=== PATIENT | female | born 1960 | race Caucasian/White ===

== ENCOUNTER → 2020-02-23 13:39 | Outpatient (BNVA) | payer OTHER, SELFPAY | PROVIDERS: Family Provider Family Medicine; PCP Family Medicine; Visit Provider Family Medicine | DX: Z11.59 Encounter for screening for other viral diseases (principal) | CPT/HCPCS: 87635 ==

== ENCOUNTER 2020-05-24 14:14 | Outpatient (CLI) | payer OTHER, SELFPAY ==
--- NOTE | 2020-05-24 14:23 | XRR_ITS ---
PROCEDURE INFORMATION: Exam: XR Chest, 2 Views Exam date and time: 05/24/2020 2:24 PM Age: 59 years old Clinical indication: Patient HX: Coughing since 05/09/20, upper back pain; Additional info: Upper back pain/cough TECHNIQUE: Imaging protocol: XR of the chest Views: 2 views. COMPARISON: No relevant prior studies available. FINDINGS: Lungs: Emphysematous change. Pleural space: Questionable small right pleural effusion. Heart/Mediastinum: No cardiomegaly. Bones/joints: Osteopenia and degenerative change. XR/XR chest 2V* [id number] IMPRESSION: Emphysematous change and questionable small right pleural effusion.
== END 2020-05-24 14:15 | disposition home or self-care (01) ==
LOC: RAD 14:18
PROVIDERS: PCP Family Medicine; Visit Provider Nurse Practitioner Family
DX: M54.9 Dorsalgia, unspecified (principal); R05 Cough
CPT/HCPCS: 71046

== ENCOUNTER 2020-06-01 10:37 | Outpatient (CLI) | payer OTHER, SELFPAY ==
--- NOTE | 2020-06-01 10:48 | XRR_ITS ---
PROCEDURE INFORMATION: Exam: XR Chest, 2 Views Exam date and time: 06/01/2020 10:49 AM Age: 59 years old Clinical indication: Cough and shortness of breath; Patient HX: SOB, back pain, cough; Additional info: Tobacco dependence/upper back pain/cough TECHNIQUE: Imaging protocol: XR of the chest Views: 2 views. COMPARISON: CR XR chest 2V* [id number] 05/24/2020 2:29 PM FINDINGS: Lungs: Unremarkable. No consolidation. Pleural space: The posterior costophrenic sulci are blunted which is consistent with small bilateral pleural effusions. This is unchanged. Heart/Mediastinum: Unremarkable. No cardiomegaly. Bones/joints: Unremarkable. XR/XR chest 2V* [id number] IMPRESSION: No significant change in small effusions in the posterior costophrenic sulci. The lungs remain clear.
== END 2020-06-01 10:38 | disposition home or self-care (01) ==
PROVIDERS: PCP Family Medicine; Visit Provider Family Medicine
DX: F17.200 Nicotine dependence, unspecified, uncomplicated (principal); M54.9 Dorsalgia, unspecified; R05 Cough
CPT/HCPCS: 71046

== ENCOUNTER 2020-10-07 10:18 | Outpatient (CLI) | payer OTHER, SELFPAY ==
--- NOTE | 2020-10-07 10:24 | XRR_ITS ---
PROCEDURE INFORMATION: Exam: XR Chest Exam date and time: 10/07/2020 10:25 AM Age: 59 years old Clinical indication: Patient HX: Back pain and cough just when lying down since 06/10; Additional info: Respiratory crackles, upper back pain TECHNIQUE: Imaging protocol: XR of the chest. Views: 2 views. COMPARISON: CR XR chest 2V* [id number] 06/01/2020 10:51 AM FINDINGS: Lungs: The lungs are over-inflated with flattening of the diaphragm indicating pulmonary emphysema. No pulmonary infiltrates are seen. Pleural spaces: Unremarkable. No pleural effusion. No pneumothorax. Heart/Mediastinum: Unremarkable. No cardiomegaly. Bones/joints: Unremarkable. XR/XR chest 2V* [id number] IMPRESSION: Overinflated lungs consistent with emphysema. No acute abnormality.
== END 2020-10-07 10:19 | disposition home or self-care (01) ==
LOC: RAD 10:21
PROVIDERS: PCP Family Medicine; Visit Provider Family Medicine
DX: R09.89 Other specified symptoms and signs involving the circulatory and respiratory systems (principal); M54.9 Dorsalgia, unspecified; R05 Cough
CPT/HCPCS: 71046

== ENCOUNTER 2020-11-11 10:07 | Outpatient (CLI) | payer OTHER, SELFPAY ==
[2020-11-11 10:42] LABS: Basophils # 0.1 10^3/uL (0.0-0.1); Basophils % 0.5 %; Eosinophils # 0.1 10^3/uL (0.0-0.8); Eosinophils % 0.8 %; Hematocrit 41.6 % (37.0-47.0); Hemoglobin 13.8 g/dL (11.5-15.3); Lymphocytes # 1.4 10^3/uL (0.8-4.8); Mean Corpuscular HGB Conc 33.2 g/dL (30.0-36.0); Mean Corpuscular Hemoglobin 33.2 pg (28.0-34.0); Mean Platelet Volume 9.8 fL (7.4-10.4); Monocytes # 0.6 10^3/uL (0.2-0.9); Monocytes % 5.5 %; Neutrophils % 78.9 %; Nucleated Red Blood Cells % 0 %; Platelet Count 276 10^3/cmm (130-400); Red Blood Count 4.16 10^6/uL (4.1-5.3); White Blood Count 10.3 10^3/uL (4.0-10.0)
[2020-11-12 17:23] LABS: Alternaria Alternata (M6) Ige <0.10 kU/L; Alternaria Class 0; Bermuda Class 0; Bermuda Grass (G2) Ige <0.10 kU/L; Cat Dander (E1) Ige <0.10 kU/L; Cat Dander Class 0; Common Ragweed (Short) (W1) Ig <0.10 kU/L; D. Farinae Class 0; Dermatophagoides Class 0; Dermatophagoides Farinae (D2) <0.10 kU/L; Dermatophagoides Pteronyssinus <0.10 kU/L; Dog Dander (E5) Ige <0.10 kU/L; Dog Dander Class 0; Elm (T8) Ige <0.10 kU/L; Elm Class 0; English Plantain (W9) Ige <0.10 kU/L; English Plantain Class 0; House Dust (Greer) (H1) Ige <0.10 kU/L; House Dust (Hollister- Stier) <0.10 kU/L; House Dust Class 0; Immunoglobulin E 183 kU/L (<OR=114); Immunoglobulin E 187 kU/L (<OR=114); Johnson Grass (G10) Ige <0.10 kU/L; Johnson Grass Cl 0; June Grass Class 0; June Grass(Kentucky Blue) (G8) <0.10 kU/L; Lamb'S Quarters (Goose Foot) <0.10 kU/L; Lamb'S Quarters Class 0; Maple (Box Elder) (T1) Ige <0.10 kU/L; Maple Class 0; Meadow Fescue (G4) Ige <0.10 kU/L; Meadow Fescue Class 0; Mucor Racemosus Class 0; Oak (T7) Ige <0.10 kU/L; Oak Class 0; Orchard Grass (Cocksfoot) (G3) <0.10 kU/L; Penicillium Class 0; Penicillium Notatum (M1) Ige <0.10 kU/L; Perennial Rye Grass (G5) Ige <0.10 kU/L; Perennial Rye Grass Class 0; Ragweeed Class 0; Rough Marsh Elder (W16) Ige <0.10 kU/L; Rough Marsh Elder Class 0; Sweet Vernal Class 0; Sweet Vernal Grass (G1) Ige <0.10 kU/L; Timothy Grass (G6) Ige <0.10 kU/L; Timothy Grass Class 0
== END 2020-11-11 10:08 | disposition home or self-care (01) ==
PROVIDERS: PCP Family Medicine; Visit Provider Internal Medicine Pulmonary Disease
DX: J30.89 Other allergic rhinitis (principal)
CPT/HCPCS: 82785; 85025; 86003

== ENCOUNTER 2020-12-03 08:46 | Outpatient (CLI) | payer OTHER, SELFPAY ==
--- NOTE | 2020-12-03 08:49 | MM_ITS ---
WS: [id number] Bilateral screening digital mammogram, 12/03/2020 Clinical Data: SCREENING Comparison: 06/21/2018. Findings: The breast parenchymal pattern shows heterogeneous density No spiculated masses or clustered calcific ations are seen. There are no secondary signs of carcinoma. MM/[id number] Impression: 1. Negative bilateral mammogram unchanged. 2. Recommend annual screening mammograms. BIRADS: 1-Negative FOLLOW UP: 1 Year Follow-up The CAD lumber checker was used.
== END 2020-12-03 08:47 | disposition home or self-care (01) ==
LOC: RADSHAW 08:48
PROVIDERS: PCP Family Medicine; Visit Provider Family Medicine
DX: Z12.31 Encounter for screening mammogram for malignant neoplasm of breast (principal)
CPT/HCPCS: 77067

== ENCOUNTER → 2021-01-28 10:00 | Outpatient (BNVA) | payer OTHER, SELFPAY | PROVIDERS: PCP Family Medicine; Visit Provider Internal Medicine Pulmonary Disease | DX: Z01.812 Encounter for preprocedural laboratory examination (principal); Z20.822 Contact with and (suspected) exposure to COVID-19 | CPT/HCPCS: 87635 ==

== ENCOUNTER 2021-02-02 07:07 | Outpatient (CLI) | payer OTHER, SELFPAY ==
--- NOTE | 2021-02-02 07:12 | CT_ITS ---
WS: [id number] LDCT LUNG CANCER SCREENING HISTORY: lung cancer screening TECHNIQUE: Axial imaging performed from the apices to 1 cm below the costophrenic angles. Coronal and sagittal reformats are submitted with axial MIP series. All CT scans at [facility] use at least one of these dose optimization techniques: automated exposure control; mA and/or kV adjustment per patient size (includes targeted exams where dose is matched to clinical indication); or iterativ e reconstruction. DLP: 61.31 mGy.cm DIvol: 1.58 mGy COMPARISON: None available. Diagnostic quality: Satisfactory Lung Nodules: No pulmonary nodules or endobronchial lesions. Lungs: Linear atelectasis or scarring at the RIGHT lung base at the costophrenic angle. Heart: Normal heart size. No pericardial effusion. Other findings: Mild atherosclerosis aorta. CT/CT lung screening [id number] IMPRESSION: LUNG-RADS: 1-Negative FOLLOW UP: 12 Month: Continue annual screening with LDCT OTHER FINDINGS (S MODIFIER): None.
--- NOTE | 2021-02-02 10:55 | PFTS_ITS ---
Date of Study:02/02/21 Date of Dictation: 02/02/2021 MECHANICS: Forced vital capacity (FVC) is normal. Forced expiratory volume in one second (FEV1) is normal. FEV1/FVC is normal. No significant postbronchodilator response. FLOW VOLUME LOOP: normal. . LUNG VOLUMES: Total lung capacity (TLC) is normal. . Residual volume (RV) is normal. DIFFUSING CAPACITY FOR CARBON MONOXIDE: normal. . INTERPRETATION: The pulmonary function tests are normal. MTDD
== END 2021-02-02 07:08 | disposition home or self-care (01) ==
LOC: RAD 07:10
PROVIDERS: PCP Family Medicine; Visit Provider Internal Medicine Pulmonary Disease
DX: Z12.2 Encounter for screening for malignant neoplasm of respiratory organs (principal); F17.200 Nicotine dependence, unspecified, uncomplicated; R60.0 Localized edema
CPT/HCPCS: 71271; 94060; 94618; 94726; 94729; J7611

== ENCOUNTER 2021-08-17 06:00 | Outpatient (RCR) | payer OTHER, SELFPAY | END 2021-08-18 23:59 | disposition home or self-care (01) | LOC: SPT 06:00 | PROVIDERS: PCP Family Medicine; Referring Provider Student in an Organized Health Care Education/Training Program; Visit Provider Student in an Organized Health Care Education/Training Program | DX: Z47.1 Aftercare following joint replacement surgery (principal); Z96.641 Presence of right artificial hip joint | CPT/HCPCS: 97110; 97161 ==

== ENCOUNTER 2021-08-19 06:00 | Outpatient (RCR) | payer OTHER, SELFPAY | END 2021-09-08 15:01 | disposition home or self-care (01) | LOC: SPT 06:00 | PROVIDERS: PCP Family Medicine; Referring Provider Student in an Organized Health Care Education/Training Program; Visit Provider Student in an Organized Health Care Education/Training Program | DX: Z47.1 Aftercare following joint replacement surgery (principal) | CPT/HCPCS: 97110; 97530 ==

== ENCOUNTER 2023-10-26 09:22 | Outpatient (CLI) | payer OTHER, SELFPAY ==
--- NOTE | 2023-10-26 09:28 | US_ITS ---
WS: [id number] RIGHT UPPER QUADRANT ULTRASOUND HISTORY: NONALCOHOLIC STEATOHEPATITIS COMPARISON: None available. Liver: 18.0 cm in length. Moderately enlarged liver. Dense coarse echotexture. No mass. No intrapelvi c dilatation. Portal Vein: Normal hepatopetal flow with monophasic waveform. Gallbladder: Normally distended gallbladder with no stones or wall thickening. CBD: 0.4 cm Pancreas: Nonvisualized. Right kidney: 11.9 cm in length. Normal size and echogenicity. No hydronephrosis or mass. Aorta and IVC: Atherosclerosis aorta. Limited IVC evaluation. No ascites. US/US abdomen limited [id number] IMPRESSION: 1. Normal gallbladder. 2. Moderately enlarged liver with advanced hepatic steatosis. No mass.
== END 2023-10-26 09:23 | disposition home or self-care (01) ==
LOC: RAD 09:22
PROVIDERS: PCP Family Medicine; Visit Provider Family Medicine
DX: K75.81 Nonalcoholic steatohepatitis (NASH) (principal); R16.0 Hepatomegaly, not elsewhere classified
CPT/HCPCS: 76705

== ENCOUNTER 2023-11-02 09:53 | Outpatient (CLI) | payer OTHER, SELFPAY ==
--- NOTE | 2023-11-02 09:59 | MM_ITS ---
WS: [id number] SCREENING DIGITAL TOMOSYNTHESIS MAMMOGRAM WITH CAD HISTORY: SCREENING COMPARISON: 12/03/2020 and 06/21/2018 Bilateral CC and MLO with tomosynthesis views submitted. Synthetic mammography reviewed. Computer aid ed detection analyzed. Breast composition: There are scattered areas of fibroglandular density. No suspicious masses, microc alcifications or architectural distortion. MM/[id number] IMPRESSION: BI-RADS: 1-Negative FOLLOW UP: 1 Year Follow-up
== END 2023-11-02 09:54 | disposition home or self-care (01) ==
LOC: RAD 09:53
PROVIDERS: PCP Family Medicine; Visit Provider Family Medicine
DX: Z12.31 Encounter for screening mammogram for malignant neoplasm of breast (principal); R92.323 Mammographic fibroglandular density, bilateral breasts
CPT/HCPCS: 77063; 77067

== ENCOUNTER 2023-11-16 09:14 | Outpatient (CLI) | payer OTHER, SELFPAY ==
--- NOTE | 2023-11-16 09:18 | CT_ITS ---
WS: [id number] LDCT LUNG CANCER SCREENING HISTORY: NICOTINE DEPENDENCE, CIGARETTES TECHNIQUE: Axial imaging performed from the apices to 1 cm below the costophrenic angles. Coronal and sagittal reformats are submitted with axial MIP series. All CT scans at [facility] use at least one of these dose optimization techniques: automated exposure control; mA and/or kV adjustment per patient size (includes targeted exams where dose is matched to clinical indication); or iterativ e reconstruction. DLP: 72.97 mGy.cm DIvol: Mean CTDIvol: 1.30 (mGy) COMPARISON: 02/02/2021 Diagnostic quality: Satisfactory Lungs: Mild centrilobular emphysema. No pulmonary mass or nodules identified. No pneumonia. No endobr onchial lesions. Heart: Normal size heart with no pericardial effusion.. Other findings: Very minimal atherosclerosis aorta. Normal size pulmonary artery. No adenopathy ident ified. Hepatic steatosis. No adrenal mass. CT/CT lung screening [id number] IMPRESSION: LUNG-RADS: 1-Negative FOLLOW UP: 12 Month: Continue annual screening with LDCT OTHER FINDINGS (S MODIFIER): None.
== END 2023-11-16 09:15 | disposition home or self-care (01) ==
LOC: RAD 09:15
PROVIDERS: PCP Family Medicine; Visit Provider Family Medicine
DX: F17.210 Nicotine dependence, cigarettes, uncomplicated (principal); J43.2 Centrilobular emphysema
CPT/HCPCS: 71271